=== PATIENT | female | born 1955 | race Caucasian/White ===

== ENCOUNTER 2021-12-13 07:17 | Outpatient (CLI) | payer MEDICARE | END 2021-12-13 07:18 | disposition home or self-care (01) | LOC: CSHCT 07:17 | PROVIDERS: ATTEND Family Medicine | DX: Z12.2 Encounter for screening for malignant neoplasm of respiratory organs (principal); Z87.891 Personal history of nicotine dependence | CPT/HCPCS: 71271 ==

== ENCOUNTER 2022-06-27 08:40 | Outpatient (CLI) | payer MEDICARE | END 2022-06-27 08:41 | disposition home or self-care (01) | LOC: CSHCT 08:40 | PROVIDERS: ATTEND Family Medicine | DX: Z12.2 Encounter for screening for malignant neoplasm of respiratory organs (principal); Z87.891 Personal history of nicotine dependence; R91.8 Other nonspecific abnormal finding of lung field | CPT/HCPCS: 71271 ==

== ENCOUNTER 2022-10-04 07:58 | Emergency (ER) | payer MEDICARE ==
[2022-10-04] MEDS ORDERED: Lorazepam 2 MG/ML VIAL ONE (08:48)
[2022-10-04 09:05] LABS: #Monocytes 0.8 10x3/uL (0.0-1.1); %Basophils 0.2 % (0.0-2.0); %Eosinophils 0.2 % (0.0-6.0); %Lymphocytes 15.2 % (18.0-47.0); %Monocytes 8.2 % (0.0-10.0); %Neutrophils 75.9 % (40.0-75.0); Hemoglobin 13.2 g/dL (12.0-15.5); Mean Corpuscular HGB CONC 35.1 g/dL (32.0-36.0); Mean Corpuscular Hemoglobin 29.6 pg (27.0-33.0); Mean Corpuscular Volume 84.3 fl (81.6-98.3); Mean Platelet Volume 9.6 fl (7.4-10.4); Platelet Count 311 10x3/uL (150-450); RBC Distribution Width 12.4 % (11.5-14.5); Red Blood Cell (RBC) Count 4.46 10x6/uL (3.90-5.03); White Blood Cell (WBC) Count 9.3 10x3/uL (3.5-10.5)
[2022-10-04 09:17] LABS: ALT (SGPT) 25 U/L (8-55); AST (SGOT) 22 U/L (5-34); Albumin 4.6 g/dL (3.4-4.8); Alkaline Phosphatase 57 U/L (40-110); Anion Gap 14 mmol/L (10-20); BUN (Urea Nitrogen) 9 mg/dL (9.8-20.1); Bilirubin, Total 0.3 mg/dL (0.2-1.2); Calc. Creatinine Clearance 0 mL/min (70-130); Calcium 9.6 mg/dL (7.8-10.44); Carbon Dioxide 23 mmol/L (23-31); Chloride 92 mmol/L (98-107); Estimated GFR 88; Globulin 2.4 g/dL (2.4-3.5); Glucose 125 mg/dL (80-115); Lipase 43 U/L (8-78); Magnesium 1.9 mg/dL (1.6-2.6); Potassium 4.1 mmol/L (3.5-5.1); Sodium 125 mmol/L (136-145)
== END 2022-10-04 10:14 | disposition home or self-care (01) ==
LOC: CSHERS 07:58
DX: F10.129 Alcohol abuse with intoxication, unspecified (principal); E87.1 Hypo-osmolality and hyponatremia; I10 Essential (primary) hypertension
CPT/HCPCS: 36415; 80053; 83690; 83735; 85025; 93005; 96361; 96374; J2060

== ENCOUNTER 2023-03-13 08:13 | Outpatient (CLI) | payer MEDICARE ==
[2023-03-13] MEDS ORDERED: Iopamidol 300 61% 100 ML VIAL FS ONE (10:50)
== END 2023-03-13 08:14 | disposition home or self-care (01) ==
LOC: CSHCT 08:13
PROVIDERS: ATTEND Physician Assistant Medical
DX: R10.32 Left lower quadrant pain (principal); K57.30 Diverticulosis of large intestine without perforation or abscess without bleeding; K21.9 Gastro-esophageal reflux disease without esophagitis; K58.9 Irritable bowel syndrome, unspecified; I70.90 Unspecified atherosclerosis
CPT/HCPCS: 74177; 74178; 82565

== ENCOUNTER 2023-08-16 14:58 | Outpatient (CLI) | payer MEDICARE | END 2023-08-16 14:59 | disposition home or self-care (01) | LOC: CSHCT 14:58 | PROVIDERS: ATTEND Student in an Organized Health Care Education/Training Program | DX: Z12.2 Encounter for screening for malignant neoplasm of respiratory organs (principal); Z87.891 Personal history of nicotine dependence | CPT/HCPCS: 71271 ==

== ENCOUNTER 2024-06-02 08:23 | Outpatient (CLI) | payer MEDICARE | END 2024-06-02 08:24 | disposition home or self-care (01) | LOC: CSHCT 08:23 | PROVIDERS: ATTEND Physician Assistant Medical | DX: D64.9 Anemia, unspecified (principal); R79.89 Other specified abnormal findings of blood chemistry; R50.9 Fever, unspecified; R11.2 Nausea with vomiting, unspecified; R63.4 Abnormal weight loss; K59.00 Constipation, unspecified | CPT/HCPCS: 74177 ==

== ENCOUNTER 2025-05-27 07:57 | Outpatient (CLI) | payer MEDICARE | END 2025-05-27 07:58 | disposition home or self-care (01) | LOC: CSHULT 07:57 | PROVIDERS: ATTEND Obstetrics & Gynecology | DX: R92.8 Other abnormal and inconclusive findings on diagnostic imaging of breast (principal) ==